=== PATIENT | male | born 1980 | race Caucasian/White ===

== ENCOUNTER 2016-12-23 16:24 | Emergency (ER) | payer SELFPAY ==
[~2016-12-23] VITALS: Ht 167.6 cm; Wt 81.6 kg
[~2016-12-23 16:24] MED LIST: 'PARAFON FORTE500 M1 PO; FLEXERIL10 MG PO; HYDROCODONE BIT1 T11 PO; KEFLEX500 M1 PO; MOTRIN800 MG PO; NAPROSYN500 MG PO; NKHM; NORCO 325 MG-51 TAB PO; PEN-V500 MG PO; PERIDEX 480 ML480 ML PO; VICODIN 5/500 505 MG PO
[2016-12-23] MEDS ORDERED: NAPROSYN500 MG PO (18:19)
== END 2016-12-23 18:21 | disposition home or self-care (01) ==
LOC: ED 16:24
DX: M53.3 Sacrococcygeal disorders, not elsewhere classified (principal); M54.5 Low back pain

== ENCOUNTER 2021-07-02 11:11 | Emergency (ER) | payer SELFPAY ==
[~2021-07-02] VITALS: Wt 83.9 kg
[2021-07-02] MEDS ORDERED: METHOCARBAMOL500 M1 PO (15:33)
[2021-07-02] MEDS ORDERED: PREDNISONE20 M1 PO (15:33)
== END 2021-07-02 16:00 | disposition home or self-care (01) ==
LOC: ED 11:11
DX: M54.32 Sciatica, left side (principal)